=== PATIENT | female | born 1950 | race African-American/Black ===

== ENCOUNTER 2019-02-06 16:45 | Emergency (ER) | payer OTHER, BC ==
--- NOTE | 2019-02-06 17:03 | EDPHY ---
General Time Seen by Provider: 02/06/19 17:03 Narrative: CLINICAL IMPRESSION: Left lower quadrant abdominal pain ASSESSMENT/PLAN: Patient is a 68-year-old female with a history of fatty liver disease, diabetes mellitus, hypertension and hyperlipidemia who presents to the emergency department with escalating left lower quadrant pain that has been present for the last 3 days. Patient is afebrile, she is uncomfortable appearing however not toxic-appearing. Her abdomen was soft, nondistended with tenderness to deep palpation in the left lower quadrant, no peritoneal signs or evidence of a surgical abdomen. CBC revealed no evidence of leukocytosis. Her vital signs were reviewed and there was no evidence of sepsis or serious bacterial illness. BMP revealed no evidence of metabolic abnormality or acute kidney injury. Hepatic panel with mildly elevated ALT and AST likely secondary to her underlying fatty liver disease. Urinalysis with no evidence of leukocytosis or RBCs, no findings to suggest UTI. CT abdomen and pelvis revealed nonspecific thickening around the rectum, patient does have hemorrhoids at this time and I suspect this is secondary to her current hemorrhoids; no other acute findings. History and physical examination is most consistent with left lower quadrant pain, query possible musculoskeletal component. There were no clinical findings to suggest appendicitis, cholecystitis, kidney stone, pancreatitis, ACS, pyelonephritis, perforated viscus, diverticulitis, hernia, AAA, mesenteric ischemia, or additional emergent intra-abdominal process. She was given Dilaudid and [place] with improvement of her symptoms. On repeat examination the patient is well-appearing, her abdomen was soft with very mild tenderness to palpation, no evidence of a surgical abdomen. The patient is well established with his primary care provider and understands the importance of close follow-up , she will try to be seen tomorrow prior to the weekend. Strict return precautions discussed- she will return for worsening or uncontrolled pain, fever , nausea, vomiting, chest pain, shortness of breath or for any other concerning symptom. Patient verbalizes understanding and she is in agreement with this plan. DIFFERENTIAL DX: Abdominal pain including but not limited to appendicitis, cholecystitis, gastritis and urinary tract infection. ED COURSE: 172: Case discussed with Dr. Wellington, agrees with plan of care. 182: Discussed case with Dr. Mackey, nonspecific thickening of the rectum, no other acute findings. 184: On repeat examination the patient states she is feeling better, her abdomen is soft she has very mild tenderness to deep palpation in the left lower quadrant. CHIEF COMPLAINT: Left lower quadrant pain HPI: Patient is a 68-year-old female with a history fatty liver disease, diabetes mellitus, hypertension and hyperlipidemia who presents to the emergency department with escalating left lower quadrant pain that has been present for the last 3 days. Patient reports 2 days ago she had a sudden onset achy sensation in her left lower quadrant, this lasted for a brief period of time and resolved on its own. She experienced the same pain at yesterday which lasted a bit longer however again resolved. This morning she woke up and had worsening and constant pain in the left lower quadrant which is now radiating up into her left flank area. She has never experienced anything like this before. Patient with routine colonoscopy 4 years prior that was reportedly unremarkable. She has decreased appetite secondary to the pain. She denies any fever, nausea or vomiting. She has had no chest pain or shortness of breath. She had a loose bowel movement just prior to arrival, denies any melena or hematochezia. She has no urinary symptoms to include dysuria, hematuria or increased frequency. She denies any pelvic pain, vaginal bleeding or vaginal discharge. No history of abdominal surgeries. Denies any trauma. PMH: Fatty liver disease, diabetes, hypertension, hyperlipidemia Pertinent Past Surgical History: Thyroidectomy, cataract surgery and remote bilateral tubal ligation Family History: Noncontributory Social History: Never smoker, denies illicit drug use and denies alcohol use REVIEW OF SYSTEMS: All other systems negative Constitutional: Decreased appetite. No fever, no chills. Eyes: No discharge, vision change ENT: No sore throat, congestion, ear pain. Cardiovascular: No chest pain, no palpitations. Respiratory: No cough, no shortness of breath. Gastrointestinal: Abdominal pain, loose stool. No vomiting. Genitourinary: No hematuria, dysuria or pelvic pain. Musculoskeletal: No back pain, joint swelling, joint pain, myalgias. Skin: No rashes, color change. Neurological: No headache, dizziness, weakness. PHYSICAL EXAM: General Appearance: Patient is well-developed, she is uncomfortable appearing however not toxic-appearing. HENT: Normocephalic, atraumatic. Bilateral external ears are normal. Bilateral tympanic membranes are normal with pearly schwarz reflex. Nares are clear, mucosa is pink. Oropharynx is clear, uvula is midline. There is no tonsillar enlargement or exudate. The dentition is normal. Eyes: PERRLA, no acute vision change, nystagmus, swelling, discharge, pain or photosensitivity. Conjunctiva pink, no pallor or injection. Neck: Supple, nontender, no lymphadenopathy, no midline pain, FROM, no meningismus. Back: No step-off, palpable bony abnormality, edema, erythema or ecchymosis of the cervical, thoracic or lumbar spines. She has no tenderness to palpation of her thoracic or lumbar spines. No paraspinal muscle tenderness to palpation. Full range of motion of all spines. 5/5 and equal strength of the UEs and LEs bilaterally including shoulder shrug. Pulses: 2+ and equal radial, DP and PT pulses bilaterally. Sensation intact and symmetric to light touch from face, UEs and LEs bilaterally. No CVA tenderness bilaterally. Respiratory: There are no retractions, lungs are clear to auscultation. Cardiac: Regular rate and rhythm, no murmurs or gallops. Gastrointestinal: Abdomen is obese however soft, bowel sounds present, no masses/hernia, no rigidity, guarding or focal peritoneal findings. She has tenderness to deep palpation in the left lower quadrant. Neurological: Alert and oriented x 3, CN 2-12 grossly intact, normal gait no ataxia, DTR's intact, normal sensation and strength Skin: Warm, dry, no rashes, no nodules on palpation. Musculoskeletal: Extremities are symmetrical, full range of motion, no tenderness, deformity, swelling, or erythema. Psychiatric: Patient is oriented X 3, there is no agitation. MEDICAL DECISION MAKING: Patient was seen independently. Secondary supervising physician at time of evaluation was Dr. Wellington. Diagnosis: Left lower quadrant pain. New, requires workup Summary: See Assessment and Plan for summary of ED visit Clinical lab tests: ordered / reviewed. Independent visualization of images, tracing, or specimens: Yes. Decision to obtain medical records or history from someone other than the patient: No Review / Summarize previous medical records: Yes Discussed patient with another provider: Yes, Dr. Wellington Patient Progress: Stable, discharge. - Diagnostics Imaging Results: Imaging Impressions Abdomen CT 02/06/19 17:23 Impression: 1. Diverticulosis in the sigmoid colon without evidence for diverticulitis. 2. Nonspecific wall thickening in the rectum. Recommend clinical correlation. 3. Fatty infiltration of the liver. 4. Small hiatal hernia. 5. Degenerative change as above. Results called and discussed with Sandi Pennington PA-C on 02/06/2019, 18:25. - History Smoking Status: Never smoked - Objective Vital Signs: Initial Vital Signs Temperature (C) 36.4 C 02/06/19 16:49 Heart Rate 77 02/06/19 16:49 Respiratory Rate 18 02/06/19 16:49 Blood Pressure 119/70 02/06/19 16:49 O2 Sat (%) 98 02/06/19 16:49 O2 Delivery Mode Room Air Allergies/Adverse Reactions: No Known Allergies Allergy (Unverified 02/06/19 16:54) Home Medications: Medication Instructions Recorded Allopurinol 02/06/19 Aspirin 81mg (*) 02/06/19 Diltiazem 02/06/19 Glipizide 02/06/19 Metformin HCl 02/06/19 Olmesartan Medoxomil 02/06/19 Pravastatin Sodium 02/06/19 Synthroid 02/06/19 hydrALAZINE 02/06/19 Laboratory Results: Laboratory Results 02/06/19 17:30 02/06/19 17:30 02/06/19 02/06/19 02/06/19 17:37 17:30 17:30 WBC 7.22 10^3/uL 10^3/uL (3.80-9.50) RBC 4.01 10^6/uL L 10^6/uL (4.18-5.33) Hgb 11.9 g/dL L g/dL (12.6-16.3) POC Hgb 13.6 gm/dL gm/dL (12.6-16.3) Hct 37.3 % L % (38.0-47.0) POC Hct 40 % % (38-47) MCV 93.0 fL fL (81.5-99.8) MCH 29.7 pg pg (27.9-34.1) MCHC 31.9 g/dL L g/dL (32.4-36.7) RDW 13.9 % % (11.5-15.2) Plt Count 283 10^3/uL 10^3/uL (150-400) MPV 10.1 fL fL (8.7-11.7) Neut % (Auto) 50.7 % % (39.3-74.2) Lymph % (Auto) 38.2 % % (15.0-45.0) Hubbard % (Auto) 9.3 % % (4.5-13.0) Eos % (Auto) 1.2 % % (0.6-7.6) Baso % (Auto) 0.3 % % (0.3-1.7) Nucleat RBC Rel Count 0.0 % % (0.0-0.2) Absolute Neuts (auto) 3.66 10^3/uL 10^3/uL (1.70-6.50) Absolute Lymphs (auto) 2.76 10^3/uL 10^3/uL (1.00-3.00) Absolute Monos (auto) 0.67 10^3/uL 10^3/uL (0.30-0.80) Absolute Eos (auto) 0.09 10^3/uL 10^3/uL (0.03-0.40) Absolute Basos (auto) 0.02 10^3/uL 10^3/uL (0.02-0.10) Absolute Nucleated RBC 0.00 10^3/uL 10^3/uL (0-0.01) Immature Gran % 0.3 % % (0.0-1.1) Immature Gran # 0.02 10^3/uL 10^3/uL (0.00-0.10) POC Sodium 139 mEq/L mEq/L (135-145) Sodium 135 mEq/L mEq/L (135-145) POC Potassium 4.1 mEq/L mEq/L (3.3-5.0) Potassium 4.3 mEq/L mEq/L (3.5-5.2) POC Chloride 107 mEq/L mEq/L (97-110) Chloride 106 mEq/L mEq/L (97-110) Carbon Dioxide 17 mEq/l L mEq/l (22-31) POC Total CO2 17 mEq/L L mEq/L (22-31) Anion Gap 12 mEq/L mEq/L (6-14) POC BUN 20 mg/dL mg/dL (7-23) BUN 20 mg/dL mg/dL (7-23) Creatinine 1.0 mg/dL mg/dL (0.6-1.0) POC Creatinine 1.1 mg/dL H mg/dL (0.6-1.0) Estimated GFR 55 Glucose 84 mg/dL mg/dL (70-100) POC Glucose 85 mg/dL mg/dL (70-100) Calcium 9.9 mg/dL mg/dL (8.5-10.4) Total Bilirubin 0.2 mg/dL mg/dL (0.1-1.4) Conjugated Bilirubin 0.2 mg/dL mg/dL (0.0-0.5) Unconjugated Bilirubin 0.0 mg/dL mg/dL (0.0-1.1) AST 69 IU/L H IU/L (14-46) ALT 83 IU/L H IU/L (9-52) Alkaline Phosphatase 70 IU/L IU/L (38-126) Total Protein 8.3 g/dL H g/dL (6.3-8.2) Albumin 4.7 g/dL g/dL (3.5-5.0) Urine Color Urine Appearance Urine pH Ur Specific [place] Urine Protein Urine Ketones Urine Blood Urine Nitrate Urine Bilirubin Urine Urobilinogen Ur Leukocyte Esterase Urine RBC Urine WBC Ur Epithelial Cells Urine Bacteria Hyaline Casts Urine Mucus Urine Glucose 02/06/19 17:05 WBC RBC Hgb POC Hgb Hct POC Hct MCV MCH MCHC RDW Plt Count MPV Neut % (Auto) Lymph % (Auto) Hubbard % (Auto) Eos % (Auto) Baso % (Auto) Nucleat RBC Rel Count Absolute Neuts (auto) Absolute Lymphs (auto) Absolute Monos (auto) Absolute Eos (auto) Absolute Basos (auto) Absolute Nucleated RBC Immature Gran % Immature Gran # POC Sodium Sodium POC Potassium Potassium POC Chloride Chloride Carbon Dioxide POC Total CO2 Anion Gap POC BUN BUN Creatinine POC Creatinine Estimated GFR Glucose POC Glucose Calcium Total Bilirubin Conjugated Bilirubin Unconjugated Bilirubin AST ALT Alkaline Phosphatase Total Protein Albumin Urine Color YELLOW Urine Appearance CLEAR Urine pH 5.0 (5.0-7.5) Ur Specific [place] 1.018 (1.002-1.030) Urine Protein NEGATIVE (NEGATIVE) Urine Ketones NEGATIVE (NEGATIVE) Urine Blood NEGATIVE (NEGATIVE) Urine Nitrate NEGATIVE (NEGATIVE) Urine Bilirubin NEGATIVE (NEGATIVE) Urine Urobilinogen NEGATIVE EU EU (0.2-1.0) Ur Leukocyte Esterase NEGATIVE (NEGATIVE) Urine RBC 1-3 /hpf /hpf (0-3) Urine WBC 1-3 /hpf /hpf (0-3) Ur Epithelial Cells 1+ /lpf /lpf (NONE-1+) Urine Bacteria TRACE /hpf H /hpf (NONE SEEN) Hyaline Casts 5-15 /lpf /lpf (0-1) Urine Mucus 1+ /lpf /lpf (NONE-1+) Urine Glucose NEGATIVE (NEGATIVE) Medications Given: Discontinued Medications Hydrocodone Bitart/Acetaminophen ([place] 5/325) 1 tab PO EDNOW ONE Stop: 02/06/19 18:39 Last Admin: 02/06/19 19:05 Dose: 1 tab Hydrocodone Bitart/Acetaminophen ([place] 5/325mg Prepack#6) 1 btl TAKEHOME EDNOW ONE Stop: 02/06/19 18:47 Last Admin: 02/06/19 19:45 Dose: 1 btl Hydromorphone HCl (Dilaudid) 0.5 mg IVP EDNOW ONE Stop: 02/06/19 17:17 Last Admin: 02/06/19 17:28 Dose: 0.5 mg Sodium Chloride (Ns) 1,000 mls @ 0 mls/hr IV EDNOW ONE; Wide Open PRN Reason: Protocol Stop: 02/06/19 17:15 Last Admin: 02/06/19 17:28 Dose: 1,000 mls Miscellaneous Medication (Icy Hot Lidocaine/Menthol 4%/1% Patch) 1 patch TD EDNOW ONE Stop: 02/06/19 18:39 Last Admin: 02/06/19 19:05 Dose: 1 patch Point of Care Test Results: Chemistry 02/06/19 17:37 POC Sodium 139 mEq/L mEq/L (135-145) POC Potassium 4.1 mEq/L mEq/L (3.3-5.0) POC Chloride 107 mEq/L mEq/L (97-110) POC Total CO2 17 mEq/L L mEq/L (22-31) POC BUN 20 mg/dL mg/dL (7-23) POC Creatinine 1.1 mg/dL H mg/dL (0.6-1.0) POC Glucose 85 mg/dL mg/dL (70-100) ISTAT H&H 02/06/19 17:37 POC Hgb 13.6 gm/dL gm/dL (12.6-16.3) POC Hct 40 % % (38-47) Departure - Departure Disposition: Home, Routine, Self-Care Clinical Impression: Abdominal pain Qualifiers: Abdominal location: left lower quadrant Qualified Code(s): R10.32 - Left lower quadrant pain Condition: Good Instructions: Hydrocodone/Acetaminophen (By mouth), Acute Abdominal Pain (ED) Additional Instructions: DISCHARGE INSTRUCTIONS FROM YOUR DOCTOR Thank you for visiting our emergency department today. Please keep in mind that discharge from the emergency department does not mean that there is nothing wrong - it simply means that we have not identified an emergency condition that requires further evaluation or treatment in the hospital. You should always plan to follow up with primary care for re-evaluation of your condition in the next 1-2 days. Rest, push non-diuretic, non-caffeinated fluids, clear liquid diet, then a BRAT diet (bananas, rice, applesauce, toast), then slowly advance diet to normal. Attempt small frequent meals. Please follow the instructions from your physician regarding your Tylenol dosage , do not exceed 2000 mg in a 24 hr period. You may take 500 mg every 8 hr as needed. You have been prescribed [place] which is a narcotic. Please do not drive or operate machinery while taking this medication as it may make you drowsy. It may also be habit forming. This medication can also cause constipation, recommend taking 100 mg of Colace twice daily while taking this medication. This medication also contains Tylenol, please do not take other Tylenol containing products with this medication. Salonpas topical pain patch, continue use if you feel that this has helped you. you may purchase this [id number] at your pharmacy or to her local grocery store. Use as directed on the packaging. Schedule a follow-up appointment with your primary care physician in the next 1- 2 days for re-evaluation. Bring a copy of your test results with you to that appointment. Return for increased or unmanageable pain, new site or character of pain, flank pain, groin pain, pelvic pain, development of fever, chills, recurrent vomiting , vomiting blood or coffee grounds, diarrhea, constipation, bloody stools, black tarry stools, burning or pain with urination, bloody urine, inability to urinate, decreased urine output or other signs of dehydration, dizziness, weakness, fainting, difficulty breathing or swallowing, chest pain, or for any other new, worsening or worrisome symptoms. People present with illnesses and injuries in different ways, and it is always possible that we have missed something. You may always return for re-evaluation if symptoms worsen or if they are not improving or if you develop new/different symptoms. Again, thank you for choosing our emergency department. We hope that you feel better. Referrals: ALFRED PIZARRO MD [Other] - 1 day without fail Regina Jung MD [Medical Doctor] - 1 day without fail (Please establish care with a primary care provider locally)
[2019-02-06] MEDS ORDERED: NS 1,000 ML IV ONE (17:14)
[2019-02-06] MEDS ORDERED: HYDROmorphONE/DILAUDID 2 MG/ML INJ IVP ONE (17:16)
[2019-02-06 17:44] LABS: PLATELET COUNT 283 10^3/uL (150-400)
[2019-02-06] MEDS ORDERED: IOPAMIDOL (ISOVUE-300) 100 ML BTL ONE (17:46)
[2019-02-06] MEDS ORDERED: HYDROCODONE/APAP 5/325 TAB PO ONE (18:38)
[2019-02-06] MEDS ORDERED: LIDOCAINE 4%/MENTHOL 1% PATCH TD ONE (18:38)
[2019-02-06] MEDS ORDERED: HYDROCOD/APAP 5/325 PREPACK#6 BTL TAKEHOME ONE (18:46)
[2019-02-06 19:27] VITALS: BP 132/72
[2019-02-06] MEDS ORDERED: PATCH REMOVAL 1 EA PATCH TD SCH (21:00)
== END 2019-02-06 19:53 | disposition home or self-care (01) ==
DX: R10.32 Left lower quadrant pain (principal); E86.9 Volume depletion, unspecified; I10 Essential (primary) hypertension; E11.9 Type 2 diabetes mellitus without complications; K76.0 Fatty (change of) liver, not elsewhere classified; Z79.4 Long term (current) use of insulin
CPT/HCPCS: 74177; 96361; 96374; 99285; J1170; Q9967; 82435-PO; 82565-PO; 82947-PO; 84132-PO; 84295-PO; 84520-PO; 85014-ER